=== PATIENT | female | born 1985 | race Caucasian/White ===

== ENCOUNTER 2022-12-18 09:05 | Outpatient (CLI) | payer BC, SELFPAY | END 2022-12-18 09:06 | disposition home or self-care (01) | LOC: NFLDREF 09:06 | PROVIDERS: PCP Physician Assistant Medical; Visit Provider Registered Nurse | DX: Z01.419 Encounter for gynecological examination (general) (routine) without abnormal findings (principal); Z83.49 Family history of other endocrine, nutritional and metabolic diseases | CPT/HCPCS: 84443 ==

== ENCOUNTER 2023-03-31 13:50 | Outpatient (CLI) | payer OTHER, SELFPAY | END 2023-03-31 13:51 | disposition home or self-care (01) | PROVIDERS: PCP Physician Assistant Medical; Referring Provider Physician Assistant Medical; Visit Provider Physician Assistant Medical | DX: R30.9 Painful micturition, unspecified (principal); N39.0 Urinary tract infection, site not specified; N30.01 Acute cystitis with hematuria | CPT/HCPCS: 87086; 87186 ==

== ENCOUNTER 2023-10-19 08:34 | Outpatient (CLI) | payer OTHER, BC, SELFPAY | END 2023-10-19 08:35 | disposition home or self-care (01) | LOC: FRMREF 08:36 | PROVIDERS: PCP Physician Assistant Medical; Visit Provider Physician Assistant Medical | DX: L03.90 Cellulitis, unspecified (principal) | CPT/HCPCS: 80053 ==

== ENCOUNTER 2024-01-06 09:21 | Outpatient (CLI) | payer BC, SELFPAY | END 2024-01-06 09:22 | disposition home or self-care (01) | PROVIDERS: PCP Physician Assistant Medical; Visit Provider Registered Nurse | DX: Z01.419 Encounter for gynecological examination (general) (routine) without abnormal findings (principal); Z13.6 Encounter for screening for cardiovascular disorders; Z13.1 Encounter for screening for diabetes mellitus | CPT/HCPCS: 80061; 82947 ==

== ENCOUNTER 2024-01-20 08:46 | Outpatient (CLI) | payer BC, SELFPAY ==
--- NOTE | 2024-01-20 08:45 | MM_ITS ---
Patient: YNES SANTOS Facility:?[facility] Patient ID:?[id number] Site Patient ID:?[id number]. Site :?1985 Study:?XRay-Breast Bilateral 3D W/CAD-01/20/2024 9:36:57 AM Ordering Physician:Betsy Final Report: DIGITAL DIAGNOSTIC BILATERAL MAMMOGRAM USING TOMOSYNTHESIS AND COMPUTER-AIDED DETECTION RIGHT BREAST ULTRASOUND CLINICAL HISTORY: RIGHT breast lump. COMPARISON: None. TECHNIQUE: Digital BILATERAL mammogram in four projections. Tomosynthesis and CAD utilized. Real-time ultrasound imaging of RIGHT breast with imaging documentation. BREAST COMPOSITION: There are areas of scattered fibroglandular density. FINDINGS: 3D CC/MLO RIGHT breast mammogram images submitted. Nodular density within the lateral RIGHT breast. No architectural distortion or suspicious mass. No adenopathy or suspicious calcifications. Targeted ultrasound RIGHT breast 9 o`clock 8 cm from the nipple performed. In this location, there is a simple circumscribed anechoic cyst measuring 14 x 9 x 12 millimeters. Normal breast tissue is present at 4 o`clock 8 cm from the nipple. IMPRESSION: Benign fibrocystic change. No suspicious findings. No malignancy. RECOMMENDATIONS: Annual BILATERAL screening mammography. Results and recommendations discussed with the patient. BI-RADS Category 2: Benign A lay language report of this examination will be provided to the patient. Dictated by Michael Cat MD @ 01/20/2024 11:57:20 AM jj/Dictated by: Michael Cat MD @ 01/20/2024 11:57:00 AM Signed by:?Michael Cat MD @01/20/2024 12:58:04 PM (Electronic Signature)
--- NOTE | 2024-01-20 09:15 | US_ITS ---
Patient: YNES SANTOS Facility:?[facility] Patient ID:?[id number] Site Patient ID:?[id number]. Site :?1985 Study:?US-Breast Right DR BENSON TO READ-01/20/2024 9:30:00 AM Ordering Physician:?VIOLA RICHMOND Final Report: PLEASE SEE DIGITAL DIAGNOSTIC BILATERAL MAMMOGRAM PERFORMED SAME DAY CRL:chantal cornejo/Dictated by: Michael Benson MD @ 01/20/2024 11:57:00 AM Signed by:?Michael Benson MD @01/20/2024 12:58:02 PM (Electronic Signature)
== END 2024-01-20 08:47 | disposition home or self-care (01) ==
LOC: MAMMO 08:46
PROVIDERS: PCP Physician Assistant Medical; Visit Provider Registered Nurse
DX: N63.14 Unspecified lump in the right breast, lower inner quadrant (principal); N60.01 Solitary cyst of right breast
CPT/HCPCS: 76642; 77066; G0279

== ENCOUNTER 2025-02-08 08:40 | Outpatient (CLI) | payer BC, SELFPAY | END 2025-02-08 08:41 | disposition home or self-care (01) | LOC: NFLDREF 02-11 12:27 | PROVIDERS: PCP Emergency Medicine; Referring Provider Emergency Medicine; Visit Provider Emergency Medicine | DX: Z00.01 Encounter for general adult medical examination with abnormal findings (principal); E78.5 Hyperlipidemia, unspecified; Z83.3 Family history of diabetes mellitus; Z13.1 Encounter for screening for diabetes mellitus | CPT/HCPCS: 80061; 82947 ==

== ENCOUNTER 2025-02-09 09:00 | Outpatient (CLI) | payer BC, SELFPAY ==
--- NOTE | 2025-02-09 09:15 | CRLHL7_ITS ---
For Patients: As a result of the Century Cures Act, medical imaging exams and procedure reports are released immediately into your electronic medical record. You may view this report before your referring provider. If you have questions, please contact your health care provider. INDICATION: BILATERAL SCREENING MAMMOGRAM, ASYMPTOMATIC 39 Y/O FEMALE COMPARISON: 01/20/24 TECHNIQUE: CC and MLO views were obtained. These mammographic images have been obtained using full-field digital technique. These mammographic images were interpreted with the benefit of computer aided detection and tomosynthesis. BREAST COMPOSITION: The breasts are heterogeneously dense, which may obscure small masses. FINDINGS: No suspicious findings. ASSESSMENT: BI-RADS 2 Benign RECOMMENDATION: Annual screening mammogram. A lay language report of this examination will be provided to the patient. Dictated by: Michael Cat MD @ 02/13/2025 12:14:57 (Electronically Signed)
== END 2025-02-09 09:01 | disposition home or self-care (01) ==
LOC: MAMMO 09:01
PROVIDERS: PCP Emergency Medicine; Visit Provider Emergency Medicine
DX: Z12.31 Encounter for screening mammogram for malignant neoplasm of breast (principal); R92.333 Mammographic heterogeneous density, bilateral breasts
CPT/HCPCS: 77063; 77067